=== PATIENT | male | born 1940 | race Caucasian/White ===

== ENCOUNTER 2017-08-01 08:35 | Inpatient (IN) | payer MEDICARE, BC ==
[~2017-08-01] VITALS: Ht 177.8 cm; Wt 94.5 kg
--- NOTE | ~2017-08-01 | OP ---
PATIENT NAME: MONIKA JONES MEDICAL RECORD: [id number] LOCATION:[id number] ADMISSION DATE:08/01/17 SURGEON: JAY CORDOBA MD DATE OF OPERATION: 08/08/2017 PREOPERATIVE DIAGNOSES: Lumbar spinal stenosis and foraminal stenosis, L4-L5 right with disk protrusion L4-L5, right. PROCEDURE: Lumbar laminectomy, medial facetectomy, and foraminotomy with discectomy at L4-L5, right with METRx retractor. DESCRIPTION AND TECHNIQUE: After induction of general endotracheal anesthesia, the patient was rolled prone on a Feliciano frame. Lumbar spine was prepped and draped in usual sterile fashion. Fluoroscopic x-ray and spinal needle localized the L4-L5 interspace on the right side. A stab incision was created with #11 blade and series of dilators was used to advance the METRx retractor at L4-L5 interspace on the right side. Hypertrophied ligamentum flavum was removed with Cloward rongeurs. Midas Dario drill was used to perform a laminectomy, medial facetectomy, and foraminotomy at L4-L5 on the right. He has had disk fragment within the foramen and this was removed with pituitary rongeurs. Additional material was removed from the disk space and sent to pathology. The L4 and L5 nerve roots appeared to be decompressed well. Meticulous hemostasis was maintained throughout the wound. Wound was irrigated with copious amounts of Ancef irrigant solution. The fascia was closed with 2-0 Vicryl suture, the subdermal layer was closed with 3-0 Vicryl suture, skin was closed with ron. A sterile dressing was applied to the wound. The patient was awakened in good condition and taken to recovery. All counts were reported as correct. Estimated blood loss was minimal. TRANSINT:[id number] Voice Confirmation ID: [id number] DOCUMENT ID: [id number] JAY CORDOBA MD at 1544 CC: [id number] DICTATION DATE: 08/08/17 1030 [employer] WORKER: 08/08/17 1152 ADM IN [place] [id number] [place] [address]
[2017-08-01 09:02] LABS: BASOPHILS 0.1 % (0-2); EOSINOPHILS 0.6 % (0-7); HEMATOCRIT 45.6 % (42.0-54.0); HEMOGLOBIN 15.4 g/dL (13.5-17.5); IMMATURE GRANULOCYTES 0.3 % (0-5); LYMPHOCYTES 9.3 % (15-50); MCH 31.8 pg (26.0-34.0); MCHC 33.8 g/dL (31.0-37.0); MCV 94.2 fL (80.0-100.0); MEAN PLATELET VOLUME 9.1 fL (7.4-10.4); MONOCYTES 4.7 % (2-11); PLATELET COUNT 179 10x3/uL (130-400); RBC 4.84 10x6/uL (4.20-6.10); RDW 12.8 % (11.5-14.5)
[2017-08-01 09:15] LABS: ALBUMIN 3.9 g/dL (3.4-5.0); ANION GAP 11.7 mmol/L (8-16); BILIRUBIN - TOTAL 0.75 mg/dL (0.2-1.3); CALCIUM 9.5 mg/dL (8.5-10.1); CARBON DIOXIDE 28.3 mmol/L (21.0-32.0); CREATININE - SERUM 1.5 mg/dL (0.6-1.3); PROTEIN - SERUM 7.4 g/dL (6.4-8.2)
[2017-08-01 10:28] LABS: APPEARANCE SLT CLOUDY (CLEAR); COLOR ORANGE (YELLOW); SPECIFIC GRAVITY 1.015 (1.005-1.020)
[2017-08-01 10:31] LABS: EPITHELIAL CELLS 0-5 /hpf (0-5); RED CELLS - URINE OCC /hpf (0-5); WHITE CELLS - URINE 25-50 /hpf (0-5)
[2017-08-01 10:48] LABS: BACTERIA MANY /hpf (NONE SEEN); MUCUS <1+ /lpf (NONE SEEN)
[2017-08-01 11:37] LABS: AMYLASE - SERUM 154 U/L (25-115); LIPASE 554 U/L (73-393)
[2017-08-01] MEDS ORDERED: HYTRIN1 MG PO (18:29)
[2017-08-01] MEDS ORDERED: CELEBREX200 MG PO (18:29)
[2017-08-01 20:00] VITALS: BP 184/79
[2017-08-01 22:44] VITALS: BP 184/79; BMI 29.9
[2017-08-02] VITALS (7 sets, daily range): BP systolic 98–133; BP diastolic 61–69
[2017-08-02 03:54] LABS: BASOPHILS 0.1 % (0-2); HEMATOCRIT 40.6 % (42.0-54.0); HEMOGLOBIN 13.7 g/dL (13.5-17.5); IMMATURE GRANULOCYTES 0.3 % (0-5); LYMPHOCYTES 20.8 % (15-50); MCH 31.8 pg (26.0-34.0); MCHC 33.7 g/dL (31.0-37.0); MCV 94.2 fL (80.0-100.0); MEAN PLATELET VOLUME 9.1 fL (7.4-10.4); MONOCYTES 7.8 % (2-11); PLATELET COUNT 163 10x3/uL (130-400); RBC 4.31 10x6/uL (4.20-6.10); RDW 12.8 % (11.5-14.5); WBC 7.8 10x3/uL (4.8-10.8)
[2017-08-02 04:14] LABS: ALBUMIN 3.2 g/dL (3.4-5.0); ANION GAP 9.5 mmol/L (8-16); BILIRUBIN - TOTAL 0.69 mg/dL (0.2-1.3); CALCIUM 8.6 mg/dL (8.5-10.1); CARBON DIOXIDE 26.6 mmol/L (21.0-32.0); POTASSIUM - SERUM 4.1 mmol/L (3.5-5.1); PROTEIN - SERUM 6.1 g/dL (6.4-8.2)
[2017-08-02 04:16] LABS: CREATININE - SERUM 1.1 mg/dL (0.6-1.3)
[2017-08-02 08:52] LABS: AMYLASE - SERUM 61 U/L (25-115); LIPASE 128 U/L (73-393)
[2017-08-03 04:00] VITALS: BP 121/69
[2017-08-03 09:14] VITALS: BP 124/40
[2017-08-03 13:42] LABS: BASOPHILS 0.2 % (0-2); EOSINOPHILS 4.2 % (0-7); HEMATOCRIT 41.5 % (42.0-54.0); HEMOGLOBIN 13.9 g/dL (13.5-17.5); IMMATURE GRANULOCYTES 0.2 % (0-5); LYMPHOCYTES 24.4 % (15-50); MCH 31.5 pg (26.0-34.0); MCHC 33.5 g/dL (31.0-37.0); MCV 94.1 fL (80.0-100.0); MEAN PLATELET VOLUME 9.2 fL (7.4-10.4); MONOCYTES 9.9 % (2-11); NEUTROPHILS 61.1 % (40-80); PLATELET COUNT 166 10x3/uL (130-400); RBC 4.41 10x6/uL (4.20-6.10); RDW 12.9 % (11.5-14.5)
[2017-08-03 13:54] VITALS: BP 135/66
[2017-08-03 14:03] LABS: ALBUMIN 3.5 g/dL (3.4-5.0); ANION GAP 11.3 mmol/L (8-16); BILIRUBIN - TOTAL 0.37 mg/dL (0.2-1.3); CALCIUM 8.1 mg/dL (8.5-10.1); CARBON DIOXIDE 27.6 mmol/L (21.0-32.0); CREATININE - SERUM 1.1 mg/dL (0.6-1.3); POTASSIUM - SERUM 3.9 mmol/L (3.5-5.1); PROTEIN - SERUM 6.2 g/dL (6.4-8.2)
[2017-08-03 16:25] VITALS: BP 116/65
[2017-08-03 20:00] VITALS: BP 114/69
[2017-08-04] VITALS: BP 162/81
[2017-08-04 03:49] LABS: BASOPHILS 0.3 % (0-2); EOSINOPHILS 4.9 % (0-7); HEMATOCRIT 39.6 % (42.0-54.0); HEMOGLOBIN 13.1 g/dL (13.5-17.5); IMMATURE GRANULOCYTES 0.5 % (0-5); LYMPHOCYTES 21.2 % (15-50); MCH 30.8 pg (26.0-34.0); MCHC 33.1 g/dL (31.0-37.0); MCV 93.2 fL (80.0-100.0); MEAN PLATELET VOLUME 9.1 fL (7.4-10.4); MONOCYTES 10.8 % (2-11); NEUTROPHILS 62.3 % (40-80); PLATELET COUNT 161 10x3/uL (130-400); RBC 4.25 10x6/uL (4.20-6.10); RDW 12.7 % (11.5-14.5); WBC 6.4 10x3/uL (4.8-10.8)
[2017-08-04 04:00] VITALS: BP 155/83
[2017-08-04 04:06] LABS: ALKALINE PHOSPHATASE 41 U/L (46-116); ALT (SGPT) 23 U/L (10-68); BILIRUBIN - TOTAL 0.45 mg/dL (0.2-1.3); C-REACTIVE PROTEIN 1.4 mg/dL (0.0-0.9); CALC OSMOLALITY 278 mosm/kg (275-300); CALCIUM 8.1 mg/dL (8.5-10.1); CARBON DIOXIDE 27.1 mmol/L (21.0-32.0); CHLORIDE - SERUM 104 mmol/L (98-107); GLUCOSE 102 mg/dL (74-106); POTASSIUM - SERUM 3.8 mmol/L (3.5-5.1); PROTEIN - SERUM 5.9 g/dL (6.4-8.2); SODIUM 139 mmol/L (136-145); UREA NITROGEN 14 mg/dL (7-18); eGFR NON AFRICAN AMERICAN 77 mL/min (90-120)
[2017-08-04 05:31] LABS: APPEARANCE CLEAR (CLEAR); BILIRUBIN NEGATIVE (NEGATIVE); COLOR YELLOW (YELLOW); GLUCOSE NEGATIVE (NEGATIVE); KETONE NEGATIVE (NEGATIVE); NITRITE NEGATIVE (NEGATIVE); PROTEIN NEGATIVE (NEGATIVE); UROBILINOGEN NORMAL (NORMAL)
[2017-08-04 08:00] VITALS: BP 145/77
[2017-08-04 11:55] VITALS: BP 113/68
[2017-08-04 15:39] VITALS: BP 138/51
[2017-08-04 21:51] VITALS: Ht 177.8 cm; Wt 94.5 kg
[2017-08-05] VITALS: BP 122/60
[2017-08-05 04:00] VITALS: BP 129/79
[2017-08-05 09:42] VITALS: BP 133/82
[2017-08-05 13:19] VITALS: BP 133/79
[2017-08-05 17:02] VITALS: BP 168/91
[2017-08-06] VITALS: BP 110/53
[2017-08-06 04:00] VITALS: BP 126/79
[2017-08-06 08:38] VITALS: BP 144/78
[2017-08-06 12:28] VITALS: BP 135/78
[2017-08-06 16:20] VITALS: BP 126/70
[2017-08-07] VITALS: BP 119/66
[2017-08-07 06:00] VITALS: BP 139/77
[2017-08-07 08:42] VITALS: BP 108/75
[2017-08-07 11:49] VITALS: BP 150/83
[2017-08-07 15:51] VITALS: BP 126/70
[2017-08-07 20:00] VITALS: BP 162/87
[2017-08-08] VITALS (9 sets, daily range): BP systolic 112–144; BP diastolic 69–92
[2017-08-08 16:19] LABS: HEMATOCRIT 42.6 % (42.0-54.0); HEMOGLOBIN 14.3 g/dL (13.5-17.5)
[2017-08-09] VITALS: BP 114/65
[2017-08-09 04:00] VITALS: BP 117/59
[2017-08-09 04:39] LABS: BASOPHILS 0.1 % (0-2); EOSINOPHILS 0.7 % (0-7); HEMATOCRIT 37.8 % (42.0-54.0); HEMOGLOBIN 12.4 g/dL (13.5-17.5); IMMATURE GRANULOCYTES 0.3 % (0-5); MCH 30.3 pg (26.0-34.0); MCHC 32.8 g/dL (31.0-37.0); MCV 92.4 fL (80.0-100.0); MEAN PLATELET VOLUME 9.1 fL (7.4-10.4); MONOCYTES 6.9 % (2-11); PLATELET COUNT 159 10x3/uL (130-400); RBC 4.09 10x6/uL (4.20-6.10); RDW 12.7 % (11.5-14.5); WBC 15.1 10x3/uL (4.8-10.8)
[2017-08-09 05:06] LABS: ALBUMIN 2.8 g/dL (3.4-5.0); ALKALINE PHOSPHATASE 57 U/L (46-116); ALT (SGPT) 21 U/L (10-68); BILIRUBIN - TOTAL 0.56 mg/dL (0.2-1.3); CALC OSMOLALITY 273 mosm/kg (275-300); CALCIUM 8.3 mg/dL (8.5-10.1); CARBON DIOXIDE 27.6 mmol/L (21.0-32.0); CHLORIDE - SERUM 102 mmol/L (98-107); GLUCOSE 94 mg/dL (74-106); POTASSIUM - SERUM 4.3 mmol/L (3.5-5.1); PROTEIN - SERUM 5.9 g/dL (6.4-8.2); SODIUM 136 mmol/L (136-145); UREA NITROGEN 18 mg/dL (7-18); eGFR NON AFRICAN AMERICAN 77 mL/min (90-120)
[2017-08-09 08:21] VITALS: BP 111/78
[2017-08-09] MEDS ORDERED: DULCOLAX5 MG PO (09:25)
[2017-08-09] MEDS ORDERED: PROTONIX40 MG PO (09:25)
[2017-08-09] MEDS ORDERED: KEFLEX500 MG PO (09:34)
[2017-08-09 12:36] VITALS: BP 132/68
[2017-08-09] MEDS ORDERED: HYDROCODONE-APA1 TAB PO (15:43)
[2017-08-09 16:23] VITALS: BP 120/71
== END 2017-08-09 16:40 | disposition home or self-care (01) | DRG 854 ==
LOC: D.ER 08:35 → D.MS 17:47
PROVIDERS: Family Medicine
PROC: 0QB00ZZ Excision of Lumbar Vertebra, Open Approach (ICD-10-PCS; principal; 2017-08-01)
DX: A41.9 Sepsis, unspecified organism (principal); N39.0 Urinary tract infection, site not specified; R10.31 Right lower quadrant pain; N40.0 Benign prostatic hyperplasia without lower urinary tract symptoms; M46.96 Unspecified inflammatory spondylopathy, lumbar region; M48.061 Spinal stenosis, lumbar region without neurogenic claudication; M51.26 Other intervertebral disc displacement, lumbar region; K59.00 Constipation, unspecified

== ENCOUNTER 2017-08-14 15:31 | Inpatient (IN) | payer MEDICARE, BC ==
[~2017-08-14] VITALS: Ht 177.8 cm; Wt 94.2 kg
[~2017-08-14 15:31] MED LIST: CELEBREX200 MG PO; DULCOLAX5 MG PO; HYDROCODONE-APA1 TAB PO; HYTRIN1 MG PO; KEFLEX500 MG PO; PROTONIX40 MG PO
[2017-08-14 16:56] LABS: BASOPHILS 0.4 % (0-2); HEMATOCRIT 40.8 % (42.0-54.0); HEMOGLOBIN 13.6 g/dL (13.5-17.5); IMMATURE GRANULOCYTES 0.7 % (0-5); LYMPHOCYTES 18.4 % (15-50); MCH 31.1 pg (26.0-34.0); MCHC 33.3 g/dL (31.0-37.0); MCV 93.2 fL (80.0-100.0); MEAN PLATELET VOLUME 8.9 fL (7.4-10.4); MONOCYTES 9.6 % (2-11); NEUTROPHILS 65.9 % (40-80); PLATELET COUNT 166 10x3/uL (130-400); RBC 4.38 10x6/uL (4.20-6.10); RDW 12.8 % (11.5-14.5)
[2017-08-14 18:06] LABS: APTT 28.5 SECONDS (22.8-39.4); INR 1.05 (0.85-1.17); PROTIME 13.3 SECONDS (11.6-15.0)
[2017-08-14 18:52] LABS: ALBUMIN 3.5 g/dL (3.4-5.0); ANION GAP 12.6 mmol/L (8-16); BILIRUBIN - TOTAL 0.3 mg/dL (0.2-1.3); CARBON DIOXIDE 28.1 mmol/L (21.0-32.0); CREATININE - SERUM 1.3 mg/dL (0.6-1.3); POTASSIUM - SERUM 4.7 mmol/L (3.5-5.1); PROTEIN - SERUM 6.9 g/dL (6.4-8.2)
[2017-08-15] VITALS (7 sets, daily range): BP systolic 119–155; BP diastolic 67–82; Ht 177.8 cm; Wt 94.2 kg
[2017-08-16] VITALS: BP 95/50
[2017-08-16 04:00] VITALS: BP 108/66
[2017-08-16 08:10] VITALS: BP 146/92
[2017-08-16 11:31] VITALS: BP 132/76
[2017-08-16] MEDS ORDERED: XARELTO15 MG PO (14:11)
[2017-08-16] MEDS ORDERED: XARELTO20 MG PO (14:12)
[2017-08-16 15:29] VITALS: BP 133/81
== END 2017-08-16 16:00 | disposition home or self-care (01) | DRG 299 ==
LOC: D.ER 15:31 → D.MS 20:27 → D.SDCHOLD 20:27 → D.MS 21:27
PROVIDERS: Family Medicine; Physician Assistant Medical
DX: I82.431 Acute embolism and thrombosis of right popliteal vein (principal); I26.92 Saddle embolus of pulmonary artery without acute cor pulmonale; I82.441 Acute embolism and thrombosis of right tibial vein